=== PATIENT | male | born 1990 | race Two or more races ===

== ENCOUNTER 2019-12-11 10:23 | Inpatient (IN) | payer SELFPAY ==
[~2019-12-11] VITALS: Ht 177.8 cm; Wt 77.6 kg
[2019-12-11 11:10] LABS: BASOPHILS % 0.1 % (0.0-2.0); HEMATOCRIT. 44.5 % (42.0-52.0); LYMPHOCYTES % 10.7 % (20.0-50.0); MEAN CORPUSCULAR HEMOGLOBIN 31.9 pg (28.0-32.0); MEAN CORPUSCULAR VOLUME 94.7 fL (80.0-94.0); MEAN PLATELET VOLUME 8.4 fl (7.4-10.4); NEUTROPHILS % 83.2 % (40.0-76.0); PLATELET 248 x1000/uL (130-400); RED CELL DISTRIBUTION WIDTH 13.5 % (11.6-14.6)
[2019-12-11 11:17] LABS: CHLORIDE 113 mEq/L (98-107)
[2019-12-11 11:20] LABS: ETHANOL BLOOD < 10 mg/dL
[2019-12-11] MEDS ORDERED: SODIUM CHLORIDE 0.9% 1,000 ML IV ONE ×5 (11:45→15:00)
[2019-12-11] MEDS ORDERED: LORAZEPAM 2MG/ML CPJ IV ONE (11:45)
[2019-12-11 14:38] LABS: CREATINE KINASE 57987 IU/L (39-308)
[2019-12-11] MEDS ORDERED: ACETAMINOPHEN 325MG TABLET PO PRN ×2 (15:30)
[2019-12-11] MEDS ORDERED: NITROGLYCERIN 0.4MG TABLET SL SL PRN (15:30)
[2019-12-11] MEDS ORDERED: ONDANSETRON HCL 4MG/2ML INJ IV PRN (15:30)
[2019-12-11] MEDS ORDERED: MAGNESIUM/ALUMINUM HYDROXIDE/SIMETHICONE 30ML UDC PO PRN (15:30)
[2019-12-11] MEDS ORDERED: GUAIFENESIN 200MG/10ML SUGAR FREE UDC PO PRN (15:30)
[2019-12-11] MEDS ORDERED: DOCUSATE SODIUM 100MG CAPSULE PO PRN (15:30)
[2019-12-11] MEDS ORDERED: IPRATROPIUM/ALBUTEROL 0.5-3(2.5)MG/3ML NEB NEB PRN (15:30)
[2019-12-11] MEDS ORDERED: KETOROLAC 15MG/ML VIAL IV PRN (15:30)
[2019-12-11] MEDS ORDERED: CLONIDINE 0.1MG TABLET PO PRN (15:30)
[2019-12-11] MEDS ORDERED: LORAZEPAM 2MG/ML CPJ IV PRN (15:30)
[2019-12-11] MEDS ORDERED: HALOPERIDOL LACTATE 5MG/ML VIAL IM PRN (15:30)
[2019-12-11 16:43] VITALS: BP 101/58
[2019-12-11 17:13] LABS: CLARITY URINE CLOUDY (CLEAR); COLOR URINE DARK YELLOW (YELLOW); KETONES URINE TRACE (NEGATIVE); LEUKOCYTE ESTERASE URINE TRACE (NEGATIVE); NITRITE URINE NEGATIVE (NEGATIVE); OCCULT BLOOD URINE 3+ (NEGATIVE); PROTEIN URINE 2+ (NEGATIVE); SPECIFIC GRAVITY URINE 1.027 (1.005-1.030)
[2019-12-11 17:26] LABS: CANNABINOID URINE SCREEN NEGATIVE (NEGATIVE); PHENCYCLIDINE URINE SCREEN NEGATIVE (NEGATIVE)
[2019-12-11 17:28] LABS: *AMPHETAMINES SCREEN URINE PRESUMTIVE POSITIVE (NEGATIVE); *BARBITURATES SCREEN URINE NEGATIVE (NEGATIVE); *BENZODIAZEPINES SCREEN URINE NEGATIVE (NEGATIVE); *COCAINE SCREEN URINE NEGATIVE (NEGATIVE); METHADONE URINE SCREEN NEGATIVE (NEGATIVE); OPIATES URINE SCREEN NEGATIVE (NEGATIVE)
[2019-12-11] MEDS: ENOXAPARIN 30MG/0.3ML SYR SUBCUT SCH (18:14)
[2019-12-11] MEDS: CITRIC ACID/SODIUM CITRATE SOLN 15ML UDC PO SCH (18:14)
[2019-12-11 20:00] VITALS: BP 103/58
[2019-12-11] MEDS ORDERED: ZOLPIDEM TARTRATE 5MG TABLET PO PRN (21:00)
[2019-12-11] MEDS: FAMOTIDINE 20MG TABLET PO SCH (21:52)
[2019-12-11] MEDS: SODIUM CHLORIDE 0.9% 1,000 ML IV SCH (22:52)
[2019-12-12] VITALS: BP 114/60
[2019-12-12 04:00] VITALS: BP 115/60
[2019-12-12] MEDS: CITRIC ACID/SODIUM CITRATE SOLN 15ML UDC PO SCH ×3 (09:14→17:00)
[2019-12-12] MEDS: SODIUM CHLORIDE 0.9% 1,000 ML IV SCH ×2 (11:30→21:48)
[2019-12-12 12:11] LABS: CREATINE KINASE MB FRACTION 233.4 ng/mL (0.5-3.6)
[2019-12-12 16:00] VITALS: BP 107/70
[2019-12-12] MEDS: ENOXAPARIN 30MG/0.3ML SYR SUBCUT SCH (16:00)
[2019-12-12 20:00] VITALS: BP 95/58
[2019-12-12] MEDS: FAMOTIDINE 20MG TABLET PO SCH (21:43)
[2019-12-13] VITALS: BP 92/60
[2019-12-13 04:00] VITALS: BP 102/64
[2019-12-13] MEDS: SODIUM CHLORIDE 0.9% 1,000 ML IV SCH ×2 (06:17→17:30)
[2019-12-13 07:09] LABS: BASOPHILS % 0.3 % (0.0-2.0); EOSINOPHILS % 1.3 % (0.0-5.0); LYMPHOCYTES % 30.7 % (20.0-50.0); MEAN CORPUSCULAR VOLUME 93.9 fL (80.0-94.0); MEAN PLATELET VOLUME 8.3 fl (7.4-10.4); MONOCYTES % 6.8 % (2.0-8.0); NEUTROPHILS % 60.9 % (40.0-76.0); PLATELET 142 x1000/uL (130-400); RED BLOOD CELL COUNT 4.05 mill/uL (4.7-6.1); RED CELL DISTRIBUTION WIDTH 12.8 % (11.6-14.6)
[2019-12-13 07:24] LABS: CHLORIDE 111 mEq/L (98-107)
[2019-12-13 07:42] VITALS: BP 110/76
[2019-12-13] MEDS: CITRIC ACID/SODIUM CITRATE SOLN 15ML UDC PO SCH ×3 (08:29→17:30)
[2019-12-13 09:42] LABS: CREATINE KINASE MB FRACTION 60.2 ng/mL (0.5-3.6)
[2019-12-13 11:19] VITALS: BP 102/62
[2019-12-13] MEDS ORDERED: ENOXAPARIN 40MG/0.4ML SYR SUBCUT SCH (16:00)
[2019-12-13 16:31] VITALS: BP 98/60
[2019-12-13 17:09] VITALS: BP 98/60
== END 2019-12-13 18:50 | disposition home or self-care (01) | DRG 469 ==
LOC: ER 10:23 → EDBD 14:51 → 6WST 14:51 → EDBEDREQTM 14:59 → EDBEDREQ 14:59 → ENRESERV 15:33
PROVIDERS: ADMIT Internal Medicine; ATTEND Internal Medicine
DX: N17.0 Acute kidney failure with tubular necrosis (principal); G92 Toxic encephalopathy; M62.82 Rhabdomyolysis; E87.0 Hyperosmolality and hypernatremia; E83.51 Hypocalcemia; R74.01 Elevation of levels of liver transaminase levels; Z79.899 Other long term (current) drug therapy
CPT/HCPCS: 36415; 76770; 80053; 80061; 80305; 80307; 80320; 80329; 81003; 82550; 82553; 82962; 83036; 83735; 84100; 85025; 93005; 93970; 99291; J1630; J1650; J2060; J7030; G0480